=== PATIENT | female | born 1955 | race Caucasian/White ===

== ENCOUNTER 2024-12-18 15:10 | Emergency (ER) | payer MEDICARE, OTHER, SELFPAY ==
[2024-12-18 15:15] VITALS: BP 129/90
--- NOTE | 2024-12-18 18:08 | ED.SKININJ ---
HPI-Injury
General
Chief Complaint: Bite
Source: patient
Exam Limitations: none
Time Seen by Provider: 12/18/24 18:01
Nursing documentation reviewed up to this point in time: agreed with
History of Present Illness-Injury
Is this injury a work related problem?: No
Is pt an associate of [facility]/[place]?: No
Initial Injury comments:
Patient states she was trying to get a mouse away from her sons dog but was bit by mouse on left middle finger and right index finger. Injury occurred just [employer]. Brought self to ED for eval.
Past History
Past History
ED Past Medical History: None
Review of Systems
Review of Systems
Allergies reviewed?: Yes
All Other Systems: ROS reviewed and negative except as documented in HPI and ROS
Constitutional: Reports no symptoms
Musculoskeletal: Reports no symptoms
Skin: Reports other (mouse bite to left middle finger, right index finger)
Neurological: Reports no symptoms
Psychiatric: Reports no symptoms
Skin Exam
Bite
Left Third Finger:
Type: animal (mouse)
Skin has: puncture wounds
Surrounding area around bite has: no evidence of erythema
Distal skin color and temperature: normal-warm & good color
Normal distal neurovascular exam: Yes
Right Second Finger:
Type: animal (mouse)
Skin has: puncture wounds
Surrounding area around bite has: no evidence of erythema
Distal skin color and temperature: normal-warm & good color
Normal distal neurovascular exam: Yes
Phy Exam
General Physical Exam
General Presentation: well appearing and no apparent distress
General age: appears stated age
General Skin: warm and dry
General Habitus: normal
Musculoskeletal Exam
Musculoskeletal Exam: full ROM and neuro vasc intact
Skin Exam
Skin Exam: normal color, warm/dry and no rash
Psychiatric Exam
Psychiatric Exam: normal mood/affect
Course
Orders/Labs/Results
Orders:
Orders
12/18/24 18:06
Amoxicillin 875 mg/Clav 125 mg [Augmentin 875 mg/125 mg] 1 tablet PO NOW STA
Tetanus/Diphth/Acelpertussis [Adacel] 0.5 ml IM .ONCE ONE
Vital Signs
Initial and Last Documented VS:
Initial Vital Signs
Temp Pulse Resp BP Pulse Ox
98.0 F 66 17 129/90 99
12/18/24 15:15 12/18/24 15:15 12/18/24 15:15 12/18/24 15:15 12/18/24 15:15
Last Documented Vital Signs
Temp Pulse Resp BP Pulse Ox
98.0 F 66 17 129/90 99
12/18/24 15:15 12/18/24 15:15 12/18/24 15:15 12/18/24 15:15 12/18/24 18:08
*Pulse Oximetry
SaO2: 99
Oxygen Mode of Delivery: Room air
Patient hypoxic: no
*Critical Care Note
Total Time (30-74mins, 75-104mins- exclusive of procedures): Not Applicable
Update Note
Update Note:
Patinet to ED after mouse bite to her left 3rd finger, right index finger. Puncture wounds noted, no evidence of infection, no active bleeding, no swelling. Fingers are neurovascularly intact. Discussed with her that mice are not considered to be
rabies cariers, rabies series not indicated. SHe is agreeable to this. Tdap given. Augmentin initiated in ED. WIll discharge home, ivan child [facility] PCP.
ED Attending Note
-
Portions of this chart may have been created with voice recognition software.� Occasional wrong word or��sound alike� substitutions may have occurred due to the inherent limitations of voice recognition software.
Discharge Plan
Departure
Patient Disposition: Home (Routine Discharge)
Date of Disposition: 12/18/24
Time of Disposition: 18:06
Patient with high blood pressure during this ER visit?: No
Condition: Good
Covid-19: Not Applicable
Discharge Problem:
Bitten by mouse
Instructions: Animal Bites (DC), Wound Care (DC)
Prescriptions:
New
amoxicillin-pot clavulanate 875-125 mg tablet
1 tab PO BID Qty: 14 0RF
Referrals:
NONE,* [Family Provider, Internal Medicine]
Activity Restrictions/Additional Instructions:
Follow up with your family doctor
Interventions
Interventions:
*Risk Screen - Suicide Last Done: 12/18/24 15:19
*General Assessment Last Done: 12/18/24 15:19
*Neglect/Abuse Screening Last Done: 12/18/24 15:19
*ED- Fall Risk Assessment Last Done: 12/18/24 18:40
*ED COVID-19 Vaccine History Last Done: 12/18/24 15:19
*Nursing Disposition Last Done: 12/18/24 18:40
ED-Skin Assessment Last Done: 12/18/24 18:00
Discharge Date and Time
Discharge Date/Time: 12/18/24 18:41
Print Language: [id number]
[2024-12-18] MEDS: AUGMENTIN 875 MG/125 MG 1 TABLET PO (18:22)
[2024-12-18] MEDS: ADACEL 0.5 ML IM (18:22)
== END 2024-12-18 18:41 | disposition home or self-care (01) ==
LOC: EMR 15:10
PROVIDERS: EMERGENCY PHYSICIAN Emergency Medicine
DX: S61.253A Open bite of left middle finger without damage to nail, initial encounter (principal); S61.250A Open bite of right index finger without damage to nail, initial encounter; W53.01XA Bitten by mouse, initial encounter; Z23 Encounter for immunization
CPT/HCPCS: 99283; 90471; 90715